=== PATIENT | female | born 1970 | race Caucasian/White ===

== ENCOUNTER 2016-12-08 09:34 | Day surgery (SDC) | payer OTHER ==
[~2016-12-08] VITALS: Ht 170.2 cm; Wt 48.1 kg
[~2016-12-08 09:34] MED LIST: PERCOCET 7.51 TABLET PO; VENTOLIN HFA18 GM IH; XANAX0.5 MG PO; ZOLOFT100 MG PO
[2016-12-08] MEDS ORDERED: PROCARDIA XL30 MG PO (10:31)
[2016-12-08 10:46] VITALS: BP 81/52
[2016-12-08 11:11] LABS: HEMATOCRIT 30.8 % (36.0-46.0); MCH 27.1 PG (29.0-34.0); MCHC 31.8 G/DL (30.0-36.0); MCV 85.3 FL (83-99); MEAN PLAT.VOLUME 9.1 uM^3 (9.5-12.4); PLATELET COUNT 242 K/uL (156-360); RBC DIS.WIDTH-CV 14.4 % (11.8-14.6); RBC DIS.WIDTH-SD 44.8 % (39-53); RED BLOOD COUNT 3.61 M/uL (3.80-5.20)
[2016-12-08 11:29] LABS: ANION GAP 11 MEQ/L (2-14); CHLORIDE 109 MEQ/L (99-109); POTASSIUM 3.2 MEQ/L (3.7-5.4); SAMPLE HEMOLYSIS CHECK 0; SAMPLE ICTERIC CHECK 0; SAMPLE LIPEMIA CHECK 0; SODIUM 141 MEQ/L (136-147)
[2016-12-08 11:35] LABS: GFR ESTIMATE (CALCULATED) 16 mL/min/; GLUCOSE 86 mg/dL (70-99); UREA NITROGEN (BUN) 47 mg/dL (9-23)
[2016-12-08 14:48] LABS: HBSG INDEX 0.23
[2016-12-08 14:49] LABS: ANTI-HEPATITIS A VIRUS (IGM) Nonreactive; ANTI-HEPATITIS B CORE (IGM) Nonreactive; HAV INDEX 0.13; HBC IgM INDEX 0.06
[2016-12-08 15:35] VITALS: BP 89/51
[2016-12-08 16:11] VITALS: BP 82/52
== END 2016-12-08 16:30 | disposition home or self-care (01) ==
LOC: SDC 09:34
PROVIDERS: Surgery
PROC: 03180JD Bypass Left Brachial Artery to Upper Arm Vein with Synthetic Substitute, Open Approach (ICD-10-PCS; principal; 2016-12-08)
DX: N18.9 Chronic kidney disease, unspecified (principal); J45.909 Unspecified asthma, uncomplicated; J44.9 Chronic obstructive pulmonary disease, unspecified; K50.90 Crohn's disease, unspecified, without complications; I73.00 Raynaud's syndrome without gangrene; M19.90 Unspecified osteoarthritis, unspecified site; Z87.891 Personal history of nicotine dependence; Z88.8 Allergy status to other drugs, medicaments and biological substances
CPT/HCPCS: 71010; 80048; 80074; 85027; 93005; C2628; J0690; J1644; J2175; J2250; J2720; J3010

== ENCOUNTER 2016-12-24 08:00 | Day surgery (SDC) | payer OTHER ==
[~2016-12-24] VITALS: Ht 170.2 cm; Wt 48.1 kg
[~2016-12-24 08:00] MED LIST changes: +PROCARDIA XL30 MG PO
== END 2016-12-24 11:01 | disposition home or self-care (01) ==
LOC: CATH 08:00
PROC: 057Y3DZ Dilation of Upper Vein with Intraluminal Device, Percutaneous Approach (ICD-10-PCS; principal; 2016-12-24)
DX: T82.858A Stenosis of other vascular prosthetic devices, implants and grafts, initial encounter (principal); M79.602 Pain in left arm; N19 Unspecified kidney failure; Z87.891 Personal history of nicotine dependence; Y83.2 Surgical operation with anastomosis, bypass or graft as the cause of abnormal reaction of the patient, or of later complication, without mention of misadventure at the time of the procedure
CPT/HCPCS: C1725; C1769; C1874; C1894; J1644; J2250; J3010

== ENCOUNTER 2017-07-03 13:41 | Day surgery (SDC) | payer OTHER | END 2017-07-03 16:20 | disposition home or self-care (01) | LOC: CATH 13:41 | DX: T82.898A Other specified complication of vascular prosthetic devices, implants and grafts, initial encounter (principal); M79.602 Pain in left arm; Y83.2 Surgical operation with anastomosis, bypass or graft as the cause of abnormal reaction of the patient, or of later complication, without mention of misadventure at the time of the procedure; N18.6 End stage renal disease; Z99.2 Dependence on renal dialysis; I73.00 Raynaud's syndrome without gangrene; Z87.891 Personal history of nicotine dependence; J45.909 Unspecified asthma, uncomplicated; K50.90 Crohn's disease, unspecified, without complications; M19.90 Unspecified osteoarthritis, unspecified site; Z90.710 Acquired absence of both cervix and uterus; Z90.49 Acquired absence of other specified parts of digestive tract | CPT/HCPCS: C1725; C1769; C1894; J1200; J2250; J3010 ==

== ENCOUNTER 2017-12-31 07:42 | Day surgery (SDC) | payer OTHER | END 2017-12-31 10:19 | disposition home or self-care (01) | LOC: CATH 07:42 | DX: T82.868A Thrombosis due to vascular prosthetic devices, implants and grafts, initial encounter (principal); Y83.2 Surgical operation with anastomosis, bypass or graft as the cause of abnormal reaction of the patient, or of later complication, without mention of misadventure at the time of the procedure; I12.0 Hypertensive chronic kidney disease with stage 5 chronic kidney disease or end stage renal disease; N18.6 End stage renal disease; Z99.2 Dependence on renal dialysis | CPT/HCPCS: 87641; C1757; C1769; C1894; C2628; J0690; J1644; J2250; J2405; J3010; S0020 ==